=== PATIENT | male | born 1975 | race Two or more races ===

== ENCOUNTER 2022-01-22 02:00 | Emergency (ER) | payer OTHER ==
[~2022-01-22] VITALS: Ht 172.7 cm; Wt 79.4 kg
[2022-01-22] MEDS ORDERED: LIPITOR40 M1 (02:08)
[2022-01-22] MEDS ORDERED: TAMS0.4C PO (08:02)
[2022-01-22] MEDS ORDERED: BACTRIM DS TAB1 EACH PO (08:02)
[2022-01-22] MEDS ORDERED: PERCOCET 5-3251 EACH PO (08:02)
== END 2022-01-22 09:05 | disposition home or self-care (01) ==
LOC: ER 02:00
DX: M25.551 Pain in right hip (principal); N20.1 Calculus of ureter; N20.0 Calculus of kidney

== ENCOUNTER 2022-12-14 08:32 | Day surgery (SDC) | payer OTHER ==
[~2022-12-14 08:32] MED LIST: BACTRIM DS TAB1 EACH PO; LIPITOR40 M1; PERCOCET 5-3251 EACH PO; TAMS0.4C PO
[2022-12-14] MEDS ORDERED: PERCOCET 5-3251 EACH PO (14:53)
== END 2022-12-14 17:50 | disposition home or self-care (01) ==
LOC: CIR.AMB 08:32
PROVIDERS: ATTEND Surgery
DX: D35.1 Benign neoplasm of parathyroid gland (principal); E21.0 Primary hyperparathyroidism; Z20.822 Contact with and (suspected) exposure to COVID-19